=== PATIENT | male | born 1970 | race Caucasian/White ===

== ENCOUNTER 2024-11-17 00:07 | Emergency (ER) | payer OTHER, SELFPAY ==
[2024-11-17] VITALS (7 sets, daily range): BP systolic 243; BP diastolic 138; PULSE 105–111; RESP 15–22; TEMP 37.1; O2SAT 92–95; BMI 35.9
--- OUTSIDE RECORDS SUMMARY | 2024-11-17 00:16 | XMS_ITS | Clinical Summary ---
Author Organization [facility] Address [address] [place] [address] Care Team Providers Care Director Search Name Role Phone Kanwal Johnson Primary Care Provider Allergies Active Allergy Reactions Criticality Noted Date Comments Amlodipine Weakness Low 12/04/2021 Medications albuterol sulfate 90 mcg/Actuation inhalerIndication s:Mixed simple and mucopurulent chronic bronchitis (CMS/HCC) Take 2 Puffs by inhalation every 6 hours as needed for Shortness of Breath. 8.5 Gram 3 2 Active fluticasone propionate (FLONASE) 50 mcg/spray [place], Suspension nasal inhalerIndication s:Head congestion Administer 2 Sprays in each nostril daily. 16 Gram 3 3 Active lisinopril-hydroC HLOROthiazide (ZESTORETIC) 20-12.5 mg tabletIndications :HTN (hypertension), benign Take 1 Tablet by mouth daily. 100 Tablet 3 4 Active Active Problems Problem Noted Date Diagnosed Date Acquired hypothyroidism 02/04/2023 Mixed hyperlipidemia 09/19/2022 Non compliance w medication regimen 09/19/2022 Mixed simple and mucopurulent chronic bronchitis 12/04/2021 Ventral hernia without obstruction or gangrene 0 12/04/2021 HTN (hypertension), benign 12/04/2021 Resolved Problems Problem Noted Date Diagnosed Date Resolved Date Subclinical hypothyroidism 02/24/2022 0 09/19/2022 Encounters Date Type Department Care Team Description 10/26/2024 External Device Data ST[facility] ABSTRACTION Provider, Abstract 10/25/2024 External Device Data [facility] ABSTRACTION Provider, Abstract 10/04/2024 External Device Data [facility] ABSTRACTION Provider, Abstract 09/20/2024 External Device Data [facility] ABSTRACTION Provider, Abstract from Last 3 Months Social History Tobacco Use Types Packs/Day Years Used Date Smoking Tobacco: Every Day Cigarettes Smokeless Tobacco: Never Tobacco Cessation:Ready to Q uit: Not Asked; Counseling Given: Not Answered Alcohol Use Standard Drinks/Week Comments Not Currently 0 (1 standard drink = 0.6 oz pur e alcohol) Sex and Gender Information Value Date Recorded Sex Assigned at Not on file Legal Sex Male 8:53 AM CDT Gender Identity Not on file Sexual Orientation Not on file Last Filed Vital Signs Vital Sign Reading Time Taken Comments Blood Pressure 182/78 11/05/2023 9:06 AM CDT Pulse 103 11/05/2023 9:02 AM CDT Temperature 36.8 C (98.3 F) 11/05/2023 9:02 AM CDT Respiratory Rate 18 02/04/2023 9:28 AM CDT Oxygen Saturation 93% 11/05/2023 9:02 AM CDT Inhaled Oxygen Concentration - - Weight 112.2 kg (247 lb 6 oz) 11/05/2023 9:02 AM CDT Height 177.8 cm (5' 10 ) 11/05/2023 9:02 AM CDT stated Body Mass Index 35.49 11/05/2023 9:02 AM CDT Plan of Treatment Health Maintenance Due Date Last Done Comments DTAP/TDAP/TD VACCINES (1 - Tdap) 1991 HEPATITIS B VACCINES (1 of 3 - 19+ 3-dose series) 04/1990 COLORECTAL SCREENING 2017 FIT/FOBT Q 1 year 2017 Flex Sig/CT Colonography Q 5 years 2017 ZOSTER VACCINE (1 of 2) 2022 Preventative Visit- Commercial 04/13/2024 INFLUENZA VACCINE (#1) 2024 02/04/2023 Colorectal Cancer Screening 05/05/2025 FIT-DNA Q 3 years 05/05/2025 05/05/2022 Procedures Procedure Name Priority Date/Time Associated Diagnosis Comments COLON CANCER SCREEN, STOOL DNA Routine 05/05/2022 7:45 PM ELECTRICAL TESTER Screening for colon cancer from Last 3 Months or Most Recently Relevant to Health Maintenance Results * COLON CANCER SCREEN, STOOL DNA (05/05/2022 7:45 PM ELECTRICAL TESTER) COLOGUARD RESULT Negative Negative [facility] Comment: NEGATIVE TEST RESULT. A negative Cologuard result indicates a low likelihood that a colorectal cancer (CRC) or advanced adenoma (adenomatous polyps with more advanced pre-malignant features) is present. The chance that a person with a negative Cologuard test has a colorectal cancer is less than 1 in 1500 (negative predictive value >99.9%) or has an advanced adenoma is less than 5.3% (negative predictive value 94.7%). These data are based on a prospective cross-sectional study of 10,000 individuals at average risk for colorectal cancer who were screened with both Cologuard and colonoscopy. (Ju Skinner et al, N Engl J Med 2014;370(14):4729-7875) The normal value (reference range) for this assay is negative. COLOGUARD RE-SCREENING RECOMMENDATION: Periodic colorectal cancer screening is an important part of preventive healthcare for asymptomatic individuals at average risk for colorectal cancer. Following a negative Cologuard result, the [place] Cancer Society and U.S. Multi-Society Task Force screening guidelines recommend a Cologuard re-screening interval of 3 years. References: [place] [employer] Guideline for Colorectal Cancer Screening: https://www.cancer.org/cancer/swvtq-dcvsuy-zwmwqk/qfhfxlxzo-vbgguivwf-qifkeof/ac s-rec ommendations.html.; Lavelle BELTRAN, Primo GARCÍA, Brandon HernandezK, Colorectal Cancer Screening: Recommendations for Physicians and Patients from the U.S. Multi-Society Task Force on Colorectal Cancer Screening , Am J Gastroenterology 2017; 112:1261-8562. TEST DESCRIPTION: Composite algorithmic analysis of stool DNA-biomarkers with hemoglobin immunoassay. Quantitative values of individual biomarkers are not reportable and are not associated with individual biomarker result reference ranges. Cologuard is intended for colorectal cancer screening of adults of either sex, 45 years or older, who are at average-risk for colorectal cancer (CRC). Cologuard has been approved for use by the U.S. FDA. The performance of Cologuard was established in a cross sectional study of average-risk adults aged 50-84. Cologuard performance in patients ages 45 to 49 years was estimated by sub-group analysis of near-age groups. Colonoscopies performed for a positive result may find as the most clinically significant lesion: colorectal cancer [4.0%], advanced adenoma (including sessile serrated polyps greater than or equal to 1cm diameter) [20%] or non- advanced adenoma [31%]; or no colorectal neoplasia [45%]. These estimates are derived from a prospective cross-sectional screening study of 10,000 individuals at average risk for colorectal cancer who were screened with both Cologuard and colonoscopy. (Ju Skinner et al, N Engl J Med 2014;370(14):4736-1967.) Cologuard may produce a false negative or false positive result (no colorectal cancer or precancerous polyp present at colonoscopy follow up). A negative Cologuard test result does not guarantee the absence of CRC or advanced adenoma (pre-cancer). The current Cologuard screening interval is every 3 years. ([place] Cancer Society and U.S. Multi-Society Task Force). Cologuard performance data in a 10,000 patient pivotal study using colonoscopy as the reference method can be accessed at the following location: www.[employer]/results. Additional description of the Cologuard test process, warnings and precautions can be found at [email or web address]. Stool STOOL SPECIMEN / Unknown 05/05/2022 7:45 PM ELECTRICAL TESTER 05/07/2022 6:39 PM ELECTRICAL TESTER Александр Quinones NAIL CUTTER BODY FLUIDS AND STOOLS Fin al Result [employer] [facility] # [id number] [facility] [address] , [address] [place] [address] from Last 3 Months or Most Recently Relevant to Health Maintenance Insurance [employer] [id number] Advance Directives For more information, please contact: [phone] * Full Code (Latest Code Status on File) Date Activated Date Inactivated Comments 01/22/2022 8:26 AM 01/22/2022 11:37 AM Care Teams Director Search Relationship Specialty Start Date End Date Kanwal Johnson DO [address] [place] [address] PCP - General Family Practice 02/04/23
--- NOTE | 2024-11-17 00:51 | XRR_ITS ---
PROCEDURE INFORMATION: Exam: XR Chest Exam date and time: 11/17/2024 2:58 AM Age: 54 years old Clinical indication: Pain; Chest pressure; Additional info: Cp TECHNIQUE: Imaging protocol: Radiologic exam of the chest. Views: 1 view. COMPARISON: No relevant prior studies available. FINDINGS: Lungs: Unremarkable. No consolidation. Pleural spaces: Unremarkable. No pleural effusion. No pneumothorax. Heart/Mediastinum: Unremarkable. No cardiomegaly. Bones/joints: Unremarkable. XR/XR chest 1V portable [id number] IMPRESSION: No acute findings.
[2024-11-17 01:23] LABS: Hematocrit 47.7 % (37-53); Hemoglobin 15.30 g/dL (11.27-16.99); Mean Corpuscular HGB Conc 32.1 g/dL (30-55); Mean Corpuscular Hemoglobin 27.0 pg (27-33); Mean Corpuscular Volume 84.3 fl (82-101); Nucleated Red Blood Cells % 0 %; Platelet Count 236 10^3/cmm (157-399); Red Blood Count 5.66 10^6/uL (3.85-5.65); White Blood Count 12.35 10^3/uL (3.29-11.43)
[2024-11-17 01:48] LABS: Troponin(5th) Baseline 54 ng/L (0-15)
[2024-11-17 01:50] LABS: Alanine Aminotransferase 27 U/L (0-41); Albumin Level 4.3 g/dL (3.5-5.2); Alkaline Phosphatase 67 U/L (40-130); Anion Gap 16.7 (5-19); Aspartate Amino Transferase 26 U/L (0-40); Blood Urea Nitrogen 16 mg/dL (6-20); Calcium 9.3 mg/dL (8.5-10.5); Carbon Dioxide 22 mmol/L (22-29); Chloride 101 mmol/L (98-107); Creatinine Clr Calc Pharmacy 83.8249; Globulin 2.9 g/dL (1.3-4.6); Glucose 103 mg/dL (65-115); Osmolality Calculated 281 mOsm/kg (285-295); Potassium 4.7 mmol/L (3.5-5.1); Sodium 135 mmol/L (136-145); Total Protein 7.2 g/dL (6.6-8.7)
[2024-11-17] MEDS: methylPREDNISolone sod succ 125 mg/2 mL INJ IVP (02:50)
--- NOTE | 2024-11-17 02:51 | ECG_ITS ---
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1970 Requested By: Danny Steve Order Number: [id number] Candice MD: JESSICA SALCIDO Measurements Intervals [place] Rate: 109 P: 49 MO: 152 QRS: 15 QRSD: 90 T: 113 QT: 332 QTc: 448 Interpretive Statements SINUS TACHYCARDIA POSSIBLE LEFT ATRIAL ENLARGEMENT [-0.1mV P-WAVE IN V1/V2] ST DEVIATION AND MODERATE T-WAVE ABNORMALITY, CONSIDER LATERAL ISCHEMIA [-0.1+ mV T-WAVE IN I/aVL/V5/V6] No previous ECG available for comparison Electronically Signed On 11-22-2024 20:02:50 CDT by JESSICA SALCIDO [email or web address]
--- NOTE | 2024-11-17 03:31 | ED_ITS ---
HPI - Chest Pain 2 General: Chief Complaint: Chest Pain Stated Complaint: sob cp Time Seen by Provider: 11/17/24 01:10 Source: patient and family Mode of arrival: ambulatory History of Present Illness: Chest pain shortness of breath with cough with onset Thursday, folic he had a sinus infection that got worse, he is scared as turned into pneumonia. No fever. Some productive cough. Pain is mainly with coughing across the chest. Related Data Previous Rx's ?Medication ?Instructions ?Recorded ipratropium 0.5 mg-albuterol 3 mg 3 ml inhalation Q6H PRN SOB #90 mL 11/17/24 (2.5 mg base)/3 mL nebulization soln levofloxacin 750 mg tablet 750 mg PO DAILY 4 days #4 t abs 11/17/24 prednisone 20 mg tablet 40 mg (2 x 20 mg) PO DAILY 5 days 11/17/24 #10 tabs Allergies Allergy/AdvReac Type Severity Reaction Status Date / Time No Known Allergies Allergy Verified 11/17/24 00:23 Review of Systems 2 General: Reports: 10 or more systems reviewed and unremarkable except in HPI and below PFSH ED 2 PFSH: Social History Smoking and tobacco/nicotine status: current every day tobacco/nicotine user Physical Exam 2 Const: COMMON NORMALS: no acute distress, average body habitus, patient oriented x3, healthy appearing, alert and well nourished GENERAL APPEARANCE: well kempt and well developed HENMT: COMMON NORMALS: normocephalic, atraumatic, external ears normal and moist oral mucous membranes HEAD & SCALP: normocephalic and atraumatic E XTERNAL EAR: Yes external ears normal Eye: COMMON NORMALS: Equal, round and reactive pupils present, EOMs intact bilaterally and conjunctivae normal CONJUNCTIVA: Yes conjunctivae normal P UPIL: Yes Equal, round and reactive pupils present Neck/C-Spine: COMMON NORMALS: full ROM, no lymphadenopathy and supple Chest: CHEST: Yes Symmetrical chest wall rise and No Surgical scars present (Chest) Resp: OTHER: Biphasic wheezing with accessory muscle use, mildly labored Cardio: COMMON NORMALS: regular rate, regular rhythm, S1 normal heart sound present, S2 normal heart sound present, No gallops present (Cardio), No clicks present (Cardio), No murmurs present (Cardio) and No rub (Cardio) RATE: r egular rate RHYTHM: regular rhythm HEART SOUNDS: S1 normal heart sound present, S2 normal heart sound present and no murmurs PERIPHERAL PULSES: o ther (Radial pulses 2+ and symmetric) GI: COMMON NORMALS: Soft to palpation, non-tender and no masses INSPECTION: No abdominal distension PALPATION: Yes Soft to palpation, No Guarding due to palpation present (GI) and No Rebound tenderness present : COMMON NORMALS: Yes no CVA tenderness BLADDER/KIDNEY EXAM: Yes no CVA tenderness Back/Pelvis: COMMON NORMALS: no CVA tenderness Extremity: COMMON NORMALS: normal to inspection, full ROM, capillary refill normal and no clubbing, cyanosis or edema Neuro: COMMON NORMALS: patient oriented x3 SENSORIUM/ORIENTATION: Yes alert Psych: APPEARANCE: Yes well kempt Skin: COMMON NORMALS: no rashes or lesions noted, no wounds, turgor normal and no jaundice GENERAL SKIN EXAM: no rashes or lesions noted and turgor normal Course 2 Reevaluation(s): Reevaluation #1: Patient much improved on reevaluation. O2 sats 93 to 94%, 88% when sleeping. Patient reports he can breathe much better than when he came in and is requesting discharge. Time: 03:34 Vital Signs: Vital signs: Vital Signs Temperature 98.7 F 11/17/24 00:20 Pulse Rate 107 H 11/17/24 02:38 Respiratory Rate 18 11/17/24 02:38 Blood Pressure 243/138 11/17/24 00:20 Pulse Oximetry 92 11/17/24 02:38 Oxygen Delivery Me thod Room Air 11/17/24 02:38 MDM - Chest Pain Medical Decision Making Patient with severe biphasic wheezing on ischial exam cleaned up after 3 DuoNebs and some Solu-Medrol. Patient feeling much better. O2 in the low 90s patient recommended admission but wants to go home. Will prescribe antibiotics, nebulizer solution and steroid. Patient advised to take his home blood pressure medications in the a.m. Differential Diagnosis Likely acute respiratory failure and acute myocardial infarction Medical Records I reviewed the patient's medical records. Lab Data I reviewed the patient's lab results. 11/17/24 01:06 11/17/24 01:06 Laboratory Results WBC 12.35 10^3/uL (3.29-11.43) H 11/17/24 01:06 RBC 5.66 10^6/uL (3.85-5.65) H 11/17/24 01:06 Hgb 15.30 g/dL (11.27-16.99) 11/17/24 01:06 Hct 47.7 % (37-53) 11/17/24 01:06 MCV 84.3 fl (82-101) 11/17/24 01:06 MCH 27.0 pg (27-33) 11/17/24 01:06 MCHC 32.1 g/dL (30-55) 11/17/24 01:06 RDW 13.1 % (12.1-15.1) 11/17/24 01:06 Plt Count 236 10^3/cmm (157-399) 11/17/24 01:06 MPV 11.2 fL (7.4-10.4) H 11/17/24 01:06 Neut % (Auto) 72.0 % 11/17/24 01:06 Lymph % (Auto) 14.3 % 11/17/24 01:06 Cook % (Auto) 8.3 % 11/17/24 01:06 Eos % (Auto) 4.2 % 11/17/24 01:06 Baso % (Auto) 0.6 % 11/17/24 01:06 Neut # (Auto) 8.88 10^3/uL (1.8-7.7) H 11/17/24 01:06 Lymph # (Auto) 1.8 10^3/uL (0.8-4.8) 11/17/24 01:06 Cook # (Auto) 1.0 10^3/uL (0.2-0.9) H 11/17/24 01:06 Eos # (Auto) 0.5 10^3/uL (0.0-0.8) 11/17/24 01:06 Baso # (Auto) 0.1 10^3/uL (0.0-0.1) 11/17/24 01:06 Nucleated RBC % (auto) 0 % 11/17/24 01:06 Nucleated RBCs # 0.0 /100WBC 11/17/24 01:06 Sodium 135 mmol/L (136-145) L 11/17/24 01:06 Potassium 4.7 mmol/L (3.5-5.1) 11/17/24 01:06 Chloride 101 mmol/L (98-107) 11/17/24 01:06 Carbon Dioxide 22 mmol/L (22-29) 11/17/24 01:06 Anion Gap 16.7 (5-19) 11/17/24 01:06 BUN 16 mg/dL (6-20) 11/17/24 01:06 Creatinine 1.3 mg/dL (0.7-1.2) H 11/17/24 01:06 GFR Calculation 58.0 mL/min (90-130) L 11/17/24 01:06 Glucose 103 mg/dL (65-115) 11/17/24 01:06 Calculated Osmolality 281 mOsm/kg (285-295) L 11/17/24 01:06 Calcium 9.3 mg/dL (8.5-10.5) 11/17/24 01:06 Total Bilirubin 0.4 mg/dL (0.15-1.2) 11/17/24 01:06 AST 26 U/L (0-40) 11/17/24 01:06 ALT 27 U/L (0-41) 11/17/24 01:06 Alkaline Phosphatase 67 U/L (40-130) 11/17/24 01:06 Troponin T Baseline 54 ng/L (0-15) H 11/17/24 01:06 Total Protein 7.2 g/dL (6.6-8.7) 11/17/24 01:06 Albumin 4.3 g/dL (3.5-5.2) 11/17/24 01:06 Globulin 2.9 g/dL (1.3-4.6) 11/17/24 01:06 All radiology interpretation(s) finalized by discharge ED provider radiology interpretation(s): RLL pna. Other Data I personally reviewed and interpreted the following: Personally viewed EKG performed at 3:10 AM, sinus rate of 109 with a DE interval 152, QTc of [address] elevation or depression. Discharge Plan Discharge Patient Disposition: Home Clinical Impression: Acute exacerbation of chronic obstructive pulmonary disease, Tobacco use, Hypertension Community acquired pneumonia Qualifiers: Laterality: right Lung location: lower lobe of lung Qualified Code(s): J18.9 - Pneumonia, unspecified organism Condition: Stable Prescriptions: New levofloxacin 750 mg tablet 750 mg PO DAILY 4 Days Qty: 4 0RF Rx Instructions: Start 11/18/2024 ipratropium-albuterol 0.5 mg-3 mg(2.5 mg base)/3 mL solution for nebulization 3 ml inhalation Q6H PRN (Reason: SOB) Qty: 90 0RF prednisone 20 mg tablet 40 mg PO DAILY 5 Days Qty: 10 0RF No Action No Known Home Medications Discharge Orders: Discharge ED (Routine); Ordered 11/17/24 Ordered By: Danny Steve Patient Instructions: Patient Portal & Nithya Instructions, Community Acquired Pneumonia (ED) Print Language: Icelandic Coding Level of Care Code ED Career Representative for Lisa Enamorado
[2024-11-17 03:50] LABS: Troponin 5 2HR 50.26 ng/L (0-15)
[2024-11-17 03:54] LABS: Troponin 5 2HR Delta -3.74 ABS# (0-10)
== END 2024-11-17 04:06 | disposition home or self-care (01) ==
PROVIDERS: Emergency Provider Emergency Medicine
DX: J44.1 Chronic obstructive pulmonary disease with (acute) exacerbation (principal); Z72.0 Tobacco use; I10 Essential (primary) hypertension; J18.9 Pneumonia, unspecified organism
CPT/HCPCS: 36415; 71045; 80048; 80053; 84484; 85025; 93005; 94640; 96374; 99285; J2919; J9999

== ENCOUNTER 2025-01-08 15:10 | Emergency (ER) | payer OTHER, SELFPAY ==
--- OUTSIDE RECORDS SUMMARY | 2025-01-08 15:14 | XMS_ITS | Clinical Summary ---
Author Organization [facility] Address [address] [place] [address] Care Team Providers Care Paperback Machine Operator Name Role Phone Kanwal Johnson Primary Care Provider Allergies Active Allergy Reactions Criticality Noted Date Comments Amlodipine Weakness Low 12/04/2021 Medications albuterol sulfate 90 mcg/Actuation inhalerIndication s:Mixed simple and mucopurulent chronic bronchitis (CMS/HCC) Take 2 Puffs by inhalation every 6 hours as needed for Shortness of Breath. 8.5 Gram 3 2 Active fluticasone propionate (FLONASE) 50 mcg/spray [place], Suspension nasal inhalerIndication s:Head congestion Administer 2 [...] Visit- Commercial 04/13/2024 INFLUENZA VACCINE (#1) 2024 Colorectal Cancer Screening 05/05/2025 FIT-DNA Q 3 years 05/05/2025 05/05/2022 Procedures Procedure Name Priority Date/Time Associated Diagnosis Comments COLON CANCER SCREEN, STOOL DNA Routine 05/05/2022 7:45 PM ACUTE CARE OCCUPATIONAL THERAPIST Screening for colon cancer from Last 3 Months or Most Recently Relevant to Health Maintenance Results * COLON CANCER SCREEN, STOOL DNA (05/05/2022 7:45 PM ACUTE CARE OCCUPATIONAL THERAPIST) COLOGUARD RESULT Negative Negative [facility] [...] screened with both Cologuard and colonoscopy. (Ju Mcmahon al, N Engl J Med 2014;370(14):0201-5306) The normal value (reference range) for this assay is negative. COLOGUARD RE-SCREENING RECOMMENDATION: Periodic colorectal cancer screening is an important part of preventive healthcare for asymptomatic individuals at average risk for colorectal cancer. Following a negative Cologuard result, the [place] Cancer Society and U.S. Multi-Society Task Force screening guidelines recommend a Cologuard re-screening interval of 3 years. References: [place] [employer] Guideline for Colorectal Cancer Screening: https://www.cancer.org/cancer/oissr-uakdxn-teoazk/vbvvraolv-nlxdqfjwm-kvdofnq/ac s-rec ommendations.html.; Lavelle DK, Primo CR, Brandon HernandezK, Colorectal Cancer Screening: Recommendations for Physicians and Patients from the U.S. Multi-Society Task Force on Colorectal Cancer Screening , Am J Gastroenterology 2017; 112:5906-6424. TEST DESCRIPTION: Composite algorithmic analysis of stool [...] screened with both Cologuard and colonoscopy. (Ju Mcmahon al, N Engl J Med 2014;370(14):6984-5846.) Cologuard may produce a false negative or false positive result (no colorectal cancer or precancerous polyp present at colonoscopy follow up). A negative Cologuard test result does not guarantee the absence of CRC or advanced adenoma (pre-cancer). The current Cologuard screening interval is every 3 years. ([place] Cancer Society and U.S. Multi-Society Task Force). Cologuard performance data in a 10,000 patient pivotal study using colonoscopy as the reference method can be accessed at the following location: www.[employer]/results. Additional description of the Cologuard test process, warnings and precautions can be found at [email or web address]. Stool STOOL SPECIMEN / Unknown 05/05/2022 7:45 PM ACUTE CARE OCCUPATIONAL THERAPIST 05/07/2022 6:39 PM ACUTE CARE OCCUPATIONAL THERAPIST Александр Quinones STAKING TECHNICIAN BODY FLUIDS AND STOOLS Fin al Result [employer] [facility] # [id number] [address], [address] [place] [address] from Last 3 Months or Most Recently Relevant to Health Maintenance Insurance [employer] [facility] [id number] Advance Directives For more information, please contact: [phone] * Full Code (Latest Code Status on File) Date Activated Date Inactivated Comments 01/22/2022 8:26 AM 01/22/2022 11:37 AM Care Teams Paperback Machine Operator Relationship Specialty Start Date End Date Kanwal Johnson DO [address] [place] [address] PCP - General Family Practice 02/04/23
[2025-01-08 15:15] VITALS: BP 250/130; PULSE 111; TEMP 36.8; O2SAT 98
--- NOTE | 2025-01-08 15:40 | XRR_ITS ---
PROCEDURE INFORMATION: Exam: XR Right Tibia and Fibula Exam date and time: 01/08/2025 3:46 PM Age: 54 years old Clinical indication: Injury or trauma; Other: Tree limb; Laceration; Lower leg; Right; Foreign body involvement not specified; Additional info: RT lower ext pain; Lac to anterior/midshaft RT tibia; PT was hit by tree limb TECHNIQUE: Imaging protocol: Radiologic exam of the right tibia and fibula. Views: 2 views. COMPARISON: No relevant prior studies available. FINDINGS: Bones/joints: Normal. Soft tissues: Normal. XR/XR tibia fibula RT 2V [id number] IMPRESSION: No acute findings.
[2025-01-08 15:42] VITALS: BP 260/180; O2SAT 97
--- NOTE | 2025-01-08 15:49 | ED_ITS ---
HPI - Wound/Laceration General: Chief Complaint: Wound/Laceration Stated Complaint: right morales cut on tree limb Time Seen by Provider: 01/08/25 15:33 Source: patient Mode of arrival: ambulatory Limitations: no limitations History of Present Illness: Patient is a 54-year-old male with no reported past medical history who presents the emergency department after lacerating his right morales. States that he was cutting a tree, the tree recalled back and struck his leg causing laceration, bleeding controlled on arrival direct pressure. He is hypertensive 250/130 with triage, he states that his blood pressure is always like this and he denies medications or seeing doctor. He has no symptoms in regards to this, no chest pain, shortness breath, headache, lightheadedness, dizziness, visual changes. T etanus not up-to-date. States does not need anything for pain at this time. He is noted to be ambulatory into the emergency department, no distal neurovascular symptoms reported. No blood thinner use. Onset (ago): minute(s) Extremity Location: Right: lower leg Place: outdoors Patient tetanus UTD: No Context: accidental Associated symptoms: Denies chills, fever(s), nausea or vomiting Treatments prior to arrival: bandage Related Data Previous Rx's ?Medication ?Instructions ?Recorded ipratropium 0.5 mg-albuterol 3 mg 3 ml inhalation Q6H PRN SOB #90 mL 11/17/24 (2.5 mg base)/3 mL nebulization soln cephalexin 500 mg capsule 500 mg PO Q6H 5 days #20 cap s 01/08/25 Allergies Allergy/AdvReac Type Severity Reaction Status Date / Time No Known Allergies Allergy Verified 01/08/25 15:25 Review of Systems General: Reports: 10 or more systems reviewed and unremarkable except in HPI and below Const: Denies: fever(s) or chills Card: Denies: chest pain Resp: Denies: dyspnea GI: Denies: abdominal pain, nausea, vomiting or diarrhea Musc: Denies: extremity pain or joint pain Skin/Breast: Reports: new lesions (Laceration right leg); Denies: rash, skin pain or skin tenderness Neuro: Denies: headache(s) PFS ED PFSH: Social History Smoking and tobacco/nicotine status: current every day tobacco/nicotine user Physical Exam Const: COMMON NORMALS: no acute distress, patient oriented x3, no limitations, alert and well nourished GENERAL APPEARANCE: disheveled HENMT: COMMON NORMALS: normocephalic and atraumatic HEAD & SCALP: normocephalic and atraumatic Neck/C-Spine: COMMON NORMALS: full ROM, no lymphadenopathy, supple and no meningeal signs Resp: COMMON NORMALS: normal respiratory effort, No use of accessory muscles and clear to auscultation bilaterally AUSCULTATION: clear to auscultation bilaterally Cardio: COMMON NORMALS: regular rhythm RATE: tachycardic RHYTHM: regular rhythm Extremity: COMMON NORMALS: full ROM and capillary refill normal NARRATIVE EXTREMITY EXAM: Distal pulses palpable. Distal strength is intact. Normal gait. Neuro: COMMON NORMALS: patient oriented x3, moves all extremities, no focal motor deficits and no sensory deficits noted SENSORIUM/ORIENTATION: Yes alert MENINGEAL SIGNS: Yes no meningeal signs Skin: COMMON NORMALS: turgor normal NARRATIVE SKIN EXAM: To right anterior morales, 3.5 cm laceration with no active bleeding, minimal contamination GENERAL SKIN EXAM: turgor normal Procedures Laceration Laceration 1: Site: lower extremity Side (If applicable): right Size (cm): 3.5 Description: linear and contaminated Depth: simple, single layer Local Anesthetic: lidocaine 2% and with epi Amount of anesthesia used (mL): 10 Pre-repair: wound explored Skin layer closed with: nylon Size (cm): 4-0 Number of sutures: 9 Technique: simple, interrupted Course Vital Signs: Vital signs: Vital Signs Temperature 98.2 F 01/08/25 15:15 Pulse Rate 111 H 01/08/25 15:15 Blood Pressure 236/128 01/08/25 16:23 Pulse Oximetry 97 01/08/25 16:23 Oxygen Delivery Me thod Room Air 01/08/25 16:23 MDM - Wound/Laceration Medical Decision Making Patient presented for laceration to right morales after tree branch had recoiled and struck him, he arrives hypertensive 250/138, he stated multiple times he did not want any medications, no referral, and he was asymptomatic stating that his blood pressure is always this high. He had no other complaints, his wound was irrigated with approximately 250 cc normal saline by nursing staff, further cleaned by myself prior to repair. The wound was repaired, see the procedure note. He will be started on prophylactic cephalexin, and his tetanus was updated today. The x-ray did not reveal any retained foreign body or fracture. He again denies wanting medications or referral for his blood pressure. XR interpretation done by ED provider, pending radiology final review ED provider radiology interpretation(s): No radiopaque foreign body noticed to x-ray right tib-fib and no obvious fracture. Discharge Plan Discharge Patient Disposition: Home Clinical Impression: Laceration of right lower extremity Qualifiers: Encounter type: initial encounter Qualified Code(s): S81.811A - Laceration without foreign body, right lower leg, initial encounter Condition: Stable Prescriptions: New cephalexin 500 mg capsule 500 mg PO Q6H 5 Days Qty: 20 0RF No Action ipratropium-albuterol 0.5 mg-3 mg(2.5 mg base)/3 mL solution for nebulization 3 ml inhalation Q6H PRN (Reason: SOB) Qty: 90 0RF Discharge Orders: Discharge ED (Routine); Ordered 01/08/25 Ordered By: Jamaal Callejas Patient Instructions: Patient Portal & Nithya Instructions Activity Restrictions/Additional Instructions: Morales Laceration Discharge Care for Your Stitches and Wound - Keep the wound covered with a clean, dry bandage. Change the bandage daily or if it gets wet or dirty. A moist environment helps the wound heal faster and reduces pain. - You may gently wash the area with tap water and mild soap starting 24 hours after the stitches were placed. Let the area air dry before putting on a new bandage. Getting the wound wet in the first 24?48 hours does not increase the risk of infection. - Avoid soaking the wound (no swimming or baths) until the stitches are removed. - Do not apply hydrogen peroxide, alcohol, or iodine to the wound, as these can slow healing. Plain water or saline is best for cleaning. Signs of Infection Watch for these signs and call your doctor if you notice: - Redness, warmth, or swelling that is getting worse - Pus or cloudy fluid coming from the wound - Fever or chills - Red streaks spreading from the wound - Increased pain Antibiotics You have been prescribed cephalexin to help prevent infection. Take it exactly as directed. Finish the full course, even if you feel better. If you have any side effects like rash, diarrhea, or trouble breathing, contact your doctor right away. Tetanus Protection Your tetanus shot is up to date. No further action is needed unless you have a nother injury in the future. Stitch Removal Stitches on the morales are usually removed in 10?14 days. Your doctor will tell you when to return for removal. Activity - Avoid strenuous activity or heavy lifting that could stress the wound until the stitches are removed. - Elevate your leg when possible to reduce swelling. Blood Pressure Your blood pressure was high during your visit. Although you chose not to start medication or see a specialist now, it is important to follow up with your regular doctor to monitor your blood pressure. When to Seek Help Call your doctor or go to the emergency room if: - You have trouble breathing or severe allergic reaction to medication - The wound opens up or you see exposed tissue - You develop severe pain, fever, or spreading redness Questions? If you have any questions or concerns, contact your healthcare provider. Print Language: Japanese Coding Level of Care Code ED Analytics Analyst for Lisa Enamorado
[2025-01-08] MEDS: tetanus-dipt-pertussis 0.5 mL SDV IM (16:10)
[2025-01-08 16:23] VITALS: BP 236/128; O2SAT 97
[2025-01-08 16:38] VITALS: BP 232/135; O2SAT 96
[2025-01-08 16:44] VITALS: BP 232/135; PULSE 93; RESP 16; O2SAT 98
== END 2025-01-08 16:45 | disposition home or self-care (01) ==
PROVIDERS: Emergency Provider Physician Assistant
DX: S81.811A Laceration without foreign body, right lower leg, initial encounter (principal); Z72.0 Tobacco use; W22.8XXA Striking against or struck by other objects, initial encounter
CPT/HCPCS: 12002; 73590; 90471; 90715; 99283